=== PATIENT | female | born 1980 | race American Indian/Alaskan Native ===

== ENCOUNTER 2017-04-05 20:25 | Emergency (ER) | payer SELFPAY ==
[2017-04-05] MEDS ORDERED: ROBAXIN PO PRN (22:08)
[2017-04-05] MEDS ORDERED: MORPHINE IM ONE (22:12)
[2017-04-05] MEDS ORDERED: ZOFRAN IM ONE (22:14)
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
[2017-04-05] MEDS ORDERED: MORPHINE ONE (22:26)
[2017-04-05 23:25] VITALS: BP 141/90
== END 2017-04-05 23:24 | disposition home or self-care (01) ==
LOC: ED 20:25
DX: M54.6 Pain in thoracic spine (principal); R51 Headache; R06.02 Shortness of breath; F17.210 Nicotine dependence, cigarettes, uncomplicated; Z88.6 Allergy status to analgesic agent
CPT/HCPCS: 96372; 99282; J2270; J2405